=== PATIENT | female | born 1975 | race African-American/Black ===

== ENCOUNTER 2016-09-25 18:04 | Emergency (ER) | payer OTHER ==
[~2016-09-25] VITALS: Ht 157.5 cm; Wt 53.6 kg
[~2016-09-25 18:04] MED LIST: NOCURR
[2016-09-25] MEDS ORDERED: DM H1CAP5 PO (18:31)
[2016-09-25] MEDS ORDERED: SODIUM CHLORIDE 0.9% 1,000 ML IV ONE (19:00)
[2016-09-25] MEDS ORDERED: KETOROLAC TROMETHAMINE 30 MG/ML VIAL IVP ONE (19:00)
[2016-09-25] MEDS ORDERED: ONDANSETRON HCL 4 MG/2 ML VIAL IVP ONE (19:00)
[2016-09-25 20:23] VITALS: BP 127/79
== END 2016-09-25 20:34 | disposition home or self-care (01) ==
LOC: EMS 18:06
DX: K52.9 Noninfective gastroenteritis and colitis, unspecified (principal); J02.9 Acute pharyngitis, unspecified; R51 Headache; R42 Dizziness and giddiness; F17.210 Nicotine dependence, cigarettes, uncomplicated
CPT/HCPCS: 96361; 96374; 96375; 99284; J1885; J2405; J7030